=== PATIENT | female | born 1960 | race Caucasian/White ===

== ENCOUNTER 2020-07-11 05:54 | Emergency (ER) | payer BC, SELFPAY ==
[2020-07-11 06:07] VITALS: BP 171/101; PULSE 87; RESP 20; TEMP 36.5; O2SAT 96; BMI 28.8
[2020-07-11 06:17] VITALS: BP 171/101; PULSE 82; O2SAT 93
--- NOTE | 2020-07-11 06:23 | W.ED.WOUNDLC ---
HPI - Wound/Laceration General: Chief Complaint: Wound/Laceration Stated Complaint: right elbow lac Time Seen by Provider: 07/11/20 06:08 History of Present Illness: HPI narrative: Tripped over dog lacerating right elbow 4cm long. Clean. Last tetanus 8 years ago. No allergies. Extremity Location: Right: elbow Place: home Patient tetanus UTD: No Context: accidental Associated symptoms: Reports no associated symptoms and pain; Denies inability to move or numbness Review of Systems General: Reports: 10 or more systems reviewed and unremarkable except in HPI and below Const: Denies: fatigue Eyes: Denies: change in vision, blurry vision or eye redness ENMT: Denies: throat pain, swelling of lips/tongue, ear or mastoid pain or nasal congestion Card: Denies: chest pain, palpitations, irregular heart rhythm, edema, dyspnea on exertion or orthopnea Resp: Denies: dyspnea, productive cough or non-productive cough GI: Denies: abdominal pain, diarrhea or GI cramping : Denies: flank pain, difficulty voiding, urinary frequency or urinary urgency Musc: Denies: neck pain, back pain, extremity pain, joint pain, joint redness, limited range of motion or muscle weakness Skin/Breast: Denies: rash, pruritus, erythema, skin pain or skin tenderness Neuro: Denies: headache(s), numbness in extremities, weakness in extremities, sensory changes, difficulty walking, dizziness, confusion or Slurred speech present Psych: Denies: anxiety or depression Endo: Denies: polyuria All/Imm: Denies: urticaria, throat swelling or tongue swelling Physical Exam Narrative: EXAM NARRATIVE: right elbow lac 4cm. CLean. Not bleeding. Requires sutures. Const: COMMON NORMALS: no acute distress, average body habitus, patient oriented x3, no limitations, healthy appearing and well nourished EXAM LIMITATIONS: no altered mental status GENERAL APPEARANCE: cooperative, comfortable, well kempt and well developed ORIENTATION/CONSCIOUSNESS: Yes awake, Yes oriented to person, Yes oriented to place and Yes oriented to time HENMT: COMMON NORMALS: normocephalic, atraumatic and Normal external nose present HEAD & SCALP: normocephalic and atraumatic NOSE: Normal external nose present Eye: COMMON NORMALS: Equal, round and reactive pupils present and conjunctivae normal GENERAL EYE: appearance normal, both eyes and all related structures EYELID: eyelids normal CONJUNCTIVA: Yes conjunctivae normal PUPIL: Yes Equal, round and reactive pupils present Neck/C-Spine: COMMON NORMALS: full ROM and no meningeal signs GENERAL: Yes normal visual inspection CERVICAL SPINE: Yes cervical ROM normal Chest: COMMONS NORMALS: normal inspection of the chest Resp: COMMON NORMALS: normal respiratory effort and No use of accessory muscles EFFORT & INSPECTION: Yes able to speak in complete sentences and Yes symmetric chest movement Cardio: COMMON NORMALS: Peripheral pulses 2+ throughout PERIPHERAL PULSES: Peripheral pulses 2+ throughout, radial pulses present and ulnar radial pulses present GI: COMMON NORMALS: Normal to inspection, nondistended, normoactive bowel sounds present, Soft to palpation, non-tender and no masses INSPECTION: Yes normal to inspection PALPATION: Yes Soft to palpation Extremity: COMMON NORMALS: normal to inspection NARRATIVE EXTREMITY EXAM: Normal except laceration 4cm to right elbow. No bleeding. NV intact distal to injury. GENERAL: Yes normal exam except as noted Neuro: COMMON NORMALS: patient oriented x3 SENSORIUM/ORIENTATION: Yes oriented to person, Yes oriented to place and Yes oriented to time MENINGEAL SIGNS: Yes no meningeal signs Psych: APPEARANCE: Yes well kempt Skin: NARRATIVE SKIN EXAM: 4cm right elbow laceration. Procedures Laceration Laceration 1: Site: upper extremity (elbow) Side (If applicable): right Size (cm): 4 Description: irregular Depth: simple, single layer Local Anesthetic: lidocaine 1% (5cc) Amount of anesthesia used (mL): 5 Pre-repair: wound explored and irrigated extensively Skin layer closed with: other (ethilon) Size (cm): 5-0 Number of sutures: 6 Technique: simple, interrupted Course Vital Signs: Vital signs: Vital Signs Temperature 97.7 F 07/11/20 06:07 Pulse Rate 78 07/11/20 06:48 Respiratory Rate 16 07/11/20 06:48 Blood Pressure 159/81 07/11/20 06:48 Pulse Oximetry 95 07/11/20 06:48 MDM - Wound/Laceration MDM Narrative: Medical decision making narrative: 6 sutures to right elbow. Pt tolerated well. Discharge Plan Discharge Patient Disposition: Home Clinical Impression: Laceration Condition: Stable Prescriptions: New Bactrim DS 800-160 mg tablet 1 tab PO BID 7 Days Qty: 14 RF: 0 Discharge Orders: Discharge ED (Routine); Ordered 07/11/20 Ordered By: Bryce Arboleda Discharge Diet: Advance as tolerated and Usual diet Discharge Activity: Resume usual activity Patient Instructions: Laceration (ED) Activity Restrictions/Additional Instructions: sutures come out in a week. Return to ER with swelling, pain, discharge, fever, or any other worrisome symptoms. Coding Level of Care Code ED Plastic Extrusion Operator for Ivett Fwnoé Exam Comprehensive
[2020-07-11] MEDS: tetanus-diphtheria tox (adult) 0.5 mL SDV IM (06:35)
[2020-07-11 06:48] VITALS: BP 159/81; PULSE 78; RESP 16; O2SAT 95
--- NOTE | 2020-07-11 06:48 | PC.NURSE ---
Received report assumed care,no changes noted from report. Suture cart in room , ready for physician. Pt alert and oriented.
[2020-07-11] MEDS: lidocaine 1% INJ 20 mL INJECTION (07:34)
--- NOTE | 2020-07-11 07:35 | PC.NURSE ---
Placed 6 sutures in Right elbow. Covered with 3x3 gauze and secured with Tegaderm. Pt tolerated well.
[2020-07-11 07:57] VITALS: BP 159/81; PULSE 78; RESP 16; TEMP 36.4; O2SAT 96
== END 2020-07-11 08:02 | disposition home or self-care (01) ==
PROVIDERS: Emergency Provider Family Medicine
DX: S51.011A Laceration without foreign body of right elbow, initial encounter (principal); W01.0XXA Fall on same level from slipping, tripping and stumbling without subsequent striking against object, initial encounter; Z23 Encounter for immunization
CPT/HCPCS: 12002; 12345; 90471; 90714; 99282